=== PATIENT | male | born 1950 | race Caucasian/White ===

== ENCOUNTER → 2017-05-25 | Outpatient (CLI) | payer MEDICARE, OTHER ==
[~2017-05-25] MED LIST: ACETADRYL 500-1 EACH PO; AMARYL4 MG PO; AMBIEN; AMBIEN 10 MG TA10 MG PO; APAP500 PO; ASA81BEC PO; ASPIR 8181 MG PO; BENADRYL25 MG PO; CALCIUM 500 +1 EAC4 PO; CARVEDILOL12.5 MG PO; CHLORTHALIDONE25 MG PO; CLONIDINE0.1 PO; COLACE100 MG PO; COZAAR 50 MG TA50 M2 PO; CRESTOR20 MG PO; ELAVIL; ELAVIL PO; EXCEDRIN MIGRA1 EAC1 PO; EXCEDRIN MIGRAINE; FENOFIBRATE160 MG PO; FIBERCON625 M1 PO; FISH OIL 1,001000 M2 PO; GLUMETZA1000 PO; GLYBURIDE 2.52.5 MG PO; INDERAL40 MG PO; INDERAL60 MG PO; IRON325 PO; LIPITOR40 MG PO; LISINOPRIL2.5 MG PO; LISINOPRIL20 MG PO; MELATONIN3 MG PO; METFORMIN HCL500 MG PO; METOPROLOL SUCC50 MG PO; MICARDIS 80 MG80 MG PO; MINIPRIN81 MG; NEURONTIN300 MG PO; NITROGLYCERIN0.4 MG SUBLING; NORCO 5-325 TA1 EACH PO; NORVASC10 MG PO; PRILOSEC 20 MG20 MG PO; SYNTHROID50 MCG PO; TORADOL 10 MG T10 MG PO; TRAMADOL 50 MG50 MG PO; TYLENOL PM; TYLENOL PM EX-1 EACH PO
[2017-05-25 10:33] LABS: ABSOLUTE BASOPHILS 0.1 thou/uL (0.0-0.2); ABSOLUTE EOSINOPHILS 0.3 thou/uL (0.0-0.7); ABSOLUTE LYMPHOCYTES 1.4 thou/uL (0.8-5.3); ABSOLUTE MONOCYTES 0.4 thou/uL (0.0-1.2); ABSOLUTE NEUTROPHILS 4.2 thou/uL (1.6-8.1); BASOPHILS 0.9 %; EOSINOPHILS 4.5 %; LYMPHOCYTES 22.7 %; MCH 27.3 pg (26.0-34.0); MCHC 31.3 g/dL (28.0-37.0); MONOCYTES 6.4 %; NUCLEATED RBCS 0 /100WBC; PLATELET COUNT* 170 thou/uL (150-400); POLYS 65.5 %; RBC 3.67 mil/uL (4.50-6.00); RDW-CV 15.5 % (10.5-14.5); WBC 6.3 thou/uL (4.0-11.0)
[2017-05-25 10:44] LABS: ALBUMIN 2.9 g/dL (3.4-5.0); ALKALINE PHOSPHATASE 104 U/L (46-116); ANION GAP 6 mmol/L (7-16); BUN 35 mg/dL (7-18); CALCIUM 8.4 mg/dL (8.5-10.1); CHLORIDE 107 mmol/L (98-107); CHOLESTEROL 157 mg/dL (<200); CO2 29 mmol/L (21-32); CREATININE 2.1 mg/dL (0.6-1.3); GLUCOSE 134 mg/dL (70-99); HDL CHOLESTEROL 39 mg/dL (>40); LDL CHOLESTEROL 74 mg/dL (<100); POTASSIUM 4.6 mmol/L (3.5-5.1); SGOT 34 U/L (15-37); SGPT 32 U/L (30-65); SODIUM 142 mmol/L (136-145); TOTAL BILIRUBIN 0.2 mg/dL (<0.1-1.0); TOTAL PROTEIN 7.2 g/dL (6.4-8.2); TRIGLYCERIDE 222 mg/dL (<150); VLDL 44 mg/dL (<40)
[2017-05-25 10:45] LABS: SERUM ASSESSMENT Clear
[2017-05-25 19:08] LABS: GLYCOHEMOGLOBIN (HGB A1C) 7.3 % (4.8-5.6)
== END ==
LOC: M.LAB 10:09
PROVIDERS: Family Medicine
DX: Z00.01 Encounter for general adult medical examination with abnormal findings (principal); E11.29 Type 2 diabetes mellitus with other diabetic kidney complication; I10 Essential (primary) hypertension; I25.10 Atherosclerotic heart disease of native coronary artery without angina pectoris; E78.2 Mixed hyperlipidemia; N40.1 Benign prostatic hyperplasia with lower urinary tract symptoms; G47.00 Insomnia, unspecified; R53.83 Other fatigue; R06.09 Other forms of dyspnea

== ENCOUNTER → 2017-08-07 | Outpatient (CLI) | payer MEDICARE, OTHER | LOC: M.MRI 10:52 | DX: S83.281A Other tear of lateral meniscus, current injury, right knee, initial encounter (principal); S83.241A Other tear of medial meniscus, current injury, right knee, initial encounter; S80.01XA Contusion of right knee, initial encounter; E11.29 Type 2 diabetes mellitus with other diabetic kidney complication; E78.2 Mixed hyperlipidemia; I25.10 Atherosclerotic heart disease of native coronary artery without angina pectoris; V84.9XXA Unspecified occupant of special agricultural vehicle injured in nontraffic accident, initial encounter; Y93.89 Activity, other specified; Y92.89 Other specified places as the place of occurrence of the external cause; Y99.8 Other external cause status ==

== ENCOUNTER → 2017-08-18 | Outpatient (CLI) | payer MEDICARE, OTHER | LOC: M.LAB 09:56 | PROVIDERS: Family Medicine | DX: E03.8 Other specified hypothyroidism (principal); D50.8 Other iron deficiency anemias; E11.29 Type 2 diabetes mellitus with other diabetic kidney complication; I10 Essential (primary) hypertension; I25.10 Atherosclerotic heart disease of native coronary artery without angina pectoris; E78.2 Mixed hyperlipidemia ==

== ENCOUNTER → 2017-08-25 | Day surgery (SDC) | payer MEDICARE, OTHER ==
[2017-08-25 10:36] LABS: HEMATOCRIT 30.6 % (42.0-52.0); HEMOGLOBIN 9.6 gm/dL (14.0-18.0); MCH 27.3 pg (26.0-34.0); MCHC 31.5 g/dL (28.0-37.0); MCV 86.6 fL (80.0-100.0); MPV 8.6 fl. (7.2-11.1); RBC 3.54 mil/uL (4.50-6.00); RDW-CV 16.3 % (10.5-14.5); WBC 4.9 thou/uL (4.0-11.0)
[2017-08-25 10:47] LABS: CALCIUM 8.2 mg/dL (8.5-10.1); CREATININE 2.3 mg/dL (0.6-1.3); POTASSIUM 4.7 mmol/L (3.5-5.1)
--- NOTE | 2017-08-25 10:51 | EKG ---
[place] [address] ELECTROCARDIOGRAM REPORT Name: PILO OCONNELL Room: [facility].#: [id number] Admission: 08/25/17 Attend Phys: Jacque Ocampo Discharge: Date of : 50 Report #: [id number] THIS REPORT FOR: //name// [facility] Test Date: 2017-08-25 Test Time: 10:25:21 Pat Name: PILO OCONNELL Department: Room: Gender: M [place] [employer] Operator: : 1950 Requested By: Carlos Chacon Order Number: [id number] MD: Ian Martinez Measurements Intervals Maribel Rate: 60 P: 58 KS: 159 QRS: 57 QRSD: 96 T: 44 QT: 433 QTc: 433 Interpretive Statements Sinus rhythm Compared to ECG 09/15/2015 12:02:10 No significant changes Electronically Signed On 08-25-2017 10:51:12 CDT by Ian Martinez [email or web address] <ELECTRONICALLY SIGNED> By: Ian Martinez MD, [facility] 08/25/17 1051 1025 1025 Ian Martinez MD, FACC /EPI
[2017-08-25 11:04] LABS: ALBUMIN 2.8 g/dL (3.4-5.0); TOTAL BILIRUBIN 0.2 mg/dL (<0.1-1.0); TOTAL PROTEIN 6.8 g/dL (6.4-8.2)
--- NOTE | 2017-09-13 12:00 | OP ---
[address] [address] OPERATIVE REPORT Name: PILO OCONNELL MARCELLA Room: [facility]..#: [id number] Admission: 08/25/17 Attend Phys: Jacque Ocampo Discharge: Date of : 50 Report #: [id number] THIS REPORT FOR: //name// CC: Carlos Enamoradoon DICTATED BY: Driss Rollins DO DATE OF SERVICE: 08/25/2017 PREOPERATIVE DIAGNOSIS: Right knee medial meniscus tear. POSTOPERATIVE DIAGNOSIS: Right knee medial meniscus tear. PROCEDURE PERFORMED: Right knee arthroscopy with partial medial meniscectomy. SURGEON: Carlos Chacon DO [employer] ENGINEER: Driss Rollins DO ANESTHESIA: General. ANTIBIOTICS: 1 gram of Ancef IV preoperatively ANESTHESIA: General. ESTIMATED BLOOD LOSS: Minimal. TOURNIQUET: 24 minutes at 300 mmHg. COMPLICATIONS: None. CONDITION: The patient is stable to PACU. INDICATION FOR PROCEDURE: The patient is a pleasant 67-year-old male who has been seen and examined in the outpatient orthopedic clinic. He has been complaining of right knee pain for quite some time now. MRI was obtained of the right knee, which demonstrated a tear of the medial meniscus extending from the body to the posterior horn. There is also some mild chondral thinning noted on MRI as well. Right knee arthroscopy was recommended for the patient. The risks, benefits, alternatives and complications were discussed in detail and he did wish to proceed with this. INTRAOPERATIVE FINDINGS: Upon diagnostic arthroscopy, the patellofemoral joint was inspected without any notable pathology. 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 Next, the medial compartment was inspected, [place] [address] OPERATIVE REPORT Name: PILO OCONNELL Room: [facility]..#: [id number] Admission: 08/25/17 Attend Phys: Jacque Ocampo Discharge: Date of : 50 Report #: [id number] a complex tear of the medial meniscus extending from the body to the posterior horn. There was no significant chondral lesion in the medial compartment. Inspection of the anterior compartment showed intact anterior cruciate ligament with no other abnormalities. Lateral compartment was inspected with no significant pathology noted. DESCRIPTION OF PROCEDURE: The patient was seen and examined in the preoperative holding area. The correct operative extremity was marked by the operating surgeon. Written consent was obtained for the procedure. The patient was transferred to the operating room and placed supine on the operating room table. A well-padded tourniquet was placed to the right lower extremity. The right lower extremity was then placed in the arthroscopic leg [place] with the left lower extremity placed in the padded leg [place]. The operative extremity was then prepped and draped in the usual sterile fashion. A timeout was performed to verify the correct patient, procedure, and operative extremity and all were in agreement. Next, the leg was exsanguinated and the tourniquet was inflated to 300 mmHg and that remained inflated for the duration of the procedure, approximately 24 minutes. The procedure began using a standard anterolateral portal. The arthroscopic camera was inserted and diagnostic arthroscopy was performed with the findings noted above. Next, the medial portal was established using direct arthroscopic visualization and the spinal needle. The standard medial incision was then created. Medial portal was then created. A probe was inserted to probe the medial meniscus to identify the extent of the tear, which was found to extend from the body to the posterior horn. Next, the partial medial meniscectomy was performed using combination of arthroscopic biter and the arthroscopic shaver. This was confirmed to be debrided back to stable margins. The remainder of the knee was probed and found to be without any significant pathology. The knee was thoroughly irrigated and drained. The instruments were removed from the knee and the incisions were closed with nylon suture in a simple interrupted fashion. Orthopedic cocktail was then injected intraarticularly inside the knee after the incisions were closed. A sterile dressing of Xeroform, 4 x 4s, soft roll and Eric wrap was then applied to the right lower extremity. The tourniquet was deflated. Needle and sponge counts were correct x 2. Carlos Chacon was present through the entirety of the procedure. The patient was then transferred to the PACU in stable condition. He tolerated the procedure well and there were no apparent complications. <ELECTRONICALLY SIGNED> By: Giovanni David DO 09/13/17 1200 1706 2016Carlos Chacon DO /alex
== END | disposition home or self-care (01) ==
LOC: M.SUR 07:27
PROVIDERS: Orthopaedic Surgery
DX: S83.241A Other tear of medial meniscus, current injury, right knee, initial encounter (principal); Z79.899 Other long term (current) drug therapy; Z88.0 Allergy status to penicillin; Z88.8 Allergy status to other drugs, medicaments and biological substances; Z79.82 Long term (current) use of aspirin; X58.XXXA Exposure to other specified factors, initial encounter; Y93.89 Activity, other specified; Y92.89 Other specified places as the place of occurrence of the external cause; Y99.8 Other external cause status

== ENCOUNTER → 2017-10-11 | Outpatient (CLI) | payer MEDICARE, OTHER | LOC: M.RAD 15:03 | DX: M17.12 Unilateral primary osteoarthritis, left knee (principal); I10 Essential (primary) hypertension; E11.9 Type 2 diabetes mellitus without complications ==